=== PATIENT | female | born 1960 | race Caucasian/White ===

== ENCOUNTER 2016-11-25 19:44 | Emergency (ER) | payer SELFPAY ==
[2016-11-25] MEDS ORDERED: SODIUM CHLORIDE 0.9% 10 ML FLUSH FLUSH PRN (20:09)
--- NOTE | 2016-11-25 20:40 | EDPRACDOC ---
- General Information Stated Complaint: SHORTNESS OF BREATH Time Seen by Provider: 11/25/16 19:57 Home Medications: Home Medications Albuterol Sulfate [Proair Hfa] 2 puff INH Q2H PRN #1 inhaler 07/06/15 Aspirin 81 mg PO DAILY 07/06/15 Acetaminophen with Codeine [TYLENOL WITH CODEINE; [employer] with Codeine] 5 ml PO Q4-6H PRN #120 ml 11/25/16 Albuterol/Ipratropium Neb [Duoneb] 3 ml NEB Q6H PRN #1 box 11/25/16 Alprazolam [Xanax] 1 mg PO BID PRN 11/25/16 Ascorbate Calcium [Vitamin C] 500 mg PO DAILY 11/25/16 Cefdinir 300 mg PO BID #20 capsule 11/25/16 Cetirizine HCl [Zyrtec] 10 mg PO DAILY 11/25/16 Cyanocobalamin (Vitamin B-12) [Vitamin B-12 (cyanocobalamin)] 1,000 mcg SL DAILY 11/25/16 Stanton-3 Fatty Acids/Fish Oil [Fish Oil 1,000 mg Capsule] 1 cap PO DAILY Prednisone [Deltasone, Orasone] 2 tabs PO DAILY #20 tab 11/25/16 Allergies/Adverse Reactions: Allergies Allergy/AdvReac Type Severity Reaction Status Date / Time ibuprofen [From Advil] Allergy Severe Hives* Verified 11/25/16 19:51 levofloxacin [From Levaquin] Allergy See Verified 11/25/16 19:51 Comments - History of Present Illness Onset: 3 WEEKS HPI: PT PRESENTS TODAY WITH SHOB/COUGH X 3 WEEKS. PT STATES THAT TODAY SHE DEVELOPED WORSENING CID. DENIES FEVER, CP, ABD PAIN, N/V/D. HEAVY SMOKER. PMH OF ASTHMATIC BRONCHITIS FOR WHICH SHE USES AN INHALER AND HAS DONE SO W/OUT RELIEF AT HOME. Shortness of Breath: Moderate Relevant History: Reports: Asthma, COPD Cough: Reports: Non-productive Rhinorrhea: Reports: None Ear Symptoms: Reports: Earache SOB Worsens with: Reports: Exertion, Coughing, CID SOB Improves with: Reports: Rest Associated Signs and symptoms: Reports: Cough, Earache ED Past Medical History - History Reviewed Yes Nurses notes reviewed and agree except as marked - Patient Medical History Neurological History: Denies: Cerebrovascular Accident, Dementia Cardiac History: Reports: Syncope (? INNER EAR). Denies: Atrial Fibrillation, Hypertension, Congestive Heart Failure, Heart Attack, Hypercholesterolemia Respiratory History: Reports: Asthma, COPD, Chronic Bronchitis, Pneumonia. Denies: Emphysema GI/ History: Denies: Gastroesophageal Reflux Psychological History: Reports: Depression, Anxiety Systemic History: Denies: Cancer, Diabetes Surgical History: Denies: Tonsillectomy/Adnoidectomy - Family Medical History Reports: Hypertension (MOTHER), Cancer (SISTER) - Social Medical History Smoking Status: Light tobacco smoker (less than 5/day) EDM Review of Systems - Review of Systems ROS Negative Except as Marked: Yes All systems reviewed and were negative except as marked Constitutional: Fatigue Eyes: No Symptoms Reported Ears: Pain Throat: No Symptoms Reported Nose: Congestion Respiratory: Cough, Shortness of Breath, Wheezing, Asthma Cardiovascular: No Symptoms Reported Gastrointestinal: No Symptoms Reported Neurological: No Symptoms Reported Musculoskeletal: No Symptoms Reported Integumentary: No Symptoms Reported - Physical Exam Constitutional: Alert (Awake), No apparent distress Oriented to: Time, Person, Place Last recorded Vital Signs: Oxygen Pulse Oxygen Saturation O2 Device Oxygen Flow Rate Fraction of Inspired Oxygen ( FIO2) - HEENT Head: Normal Eye Exam: Normal Neck: Normal, Denies Pain, Midline - Respiratory/Cardiovascular Respiratory: Diminished, Rhonchi, Wheezes Cardiovascular: Tachycardia - GI Palpation: Normal Tenderness: Non tender - Musculoskeletal Back: Normal Extremities: Normal - Integumentary Skin: Normal Lymphatics: Normal - Neurologic Cerebellar: Normal Mood Description: Normal Thought: Coherent Perception: Normal ED SOB MDM - Re-evaluation Re-evaluation 1 Re-evaluation Time: 22:20 Re-evaluation: PT FEELING BETTER AFTER TREATMENT AND SLEEPING. PT HAS NOT TRIED OUTPATIENT TREATMENT, AND I DISCUSSED OUTPATIENT VS IN-HOSPITAL TREATMENT AND PT OPTED TO TRY OUTPATIENT FIRST. I BELIEVE THIS IS A REASONABLE PLAN AND HAD THOROUGH DISCUSSION REGARDING SMOKING CESSATION WITH PT. SHE UNDERSTANDS THAT IF SHE GOES HOME AND SMOKES, SHE WILL GET WORSE. - Results Result Diagrams: 11/25/16 20:40 11/25/16 20:40 - EKG EKG #1 EKG Time: 20:27 -: Yes EKG interpreted by me Rate: bpm: 101 [place]: Normal Rhythm: ST Block: None Hypertrophy: None ST: Normal Decision Time to Discharge: 22:22 - Departure Disposition: Home Condition: Stable Final Diagnosis: Pneumonia Qualifiers: Pneumonia type: due to unspecified organism Laterality: unspecified laterality Lung location: unspecified part of lung Qualified Code(s): J18.9 - Pneumonia, unspecified organism Instructions: Community Acquired Pneumonia (ED) Education/Counseling Given To: Patient Education/Counseling Given Regarding: Diagnosis, Treatment, Follow Up Referrals: Chay Louise MD [Primary Care Provider] - One Week Prescriptions: New Cefdinir 300 mg PO BID #20 capsule Prednisone [Deltasone, Orasone] 2 tabs PO DAILY #20 tab Acetaminophen with Codeine [TYLENOL WITH CODEINE; [employer] with Codeine] 5 ml PO Q4-6H PRN #120 ml PRN Reason: Pain Continue Albuterol/Ipratropium Neb [Duoneb] 3 ml NEB Q6H PRN #1 box PRN Reason: Shortness Of Breath No Action Aspirin 81 mg PO DAILY Albuterol Sulfate [Proair Hfa] 2 puff INH Q2H PRN #1 inhaler PRN Reason: Dyspnea Stanton-3 Fatty Acids/Fish Oil [Fish Oil 1,000 mg Capsule] 1 cap PO DAILY Cyanocobalamin (Vitamin B-12) [Vitamin B-12 (cyanocobalamin)] 1,000 mcg SL DAILY Ascorbate Calcium [Vitamin C] 500 mg PO DAILY Cetirizine HCl [Zyrtec] 10 mg PO DAILY Alprazolam [Xanax] 1 mg PO BID PRN PRN Reason: Anxiety Additional Instructions: YOU MUST NOT SMOKE!!! RETURN TO ED IF YOUR CONDITION WORSENS.
[2016-11-25 20:43] VITALS: PULSE 107; TEMP 98.6; BMI 21.8
[2016-11-25 20:45] LABS: ABG Draw Site Right Radial; ABG Draw Tech BKL; ALLEN'S TEST PASS; BEb 2.2 (+/- 2); TCO2 26.3 MMOL/L (23-27)
[2016-11-25 20:51] LABS: AUTOMATED BASOPHIL 0.7 % (0-2); AUTOMATED EOSINOPHIL 3.1 % (0-5); AUTOMATED LYMPH 4.5 % (17-44); AUTOMATED NEUTROPHIL 89.7 % (45-76); MPV 7.8 fL (7.4-10.4)
[2016-11-25] MEDS: ALBUTEROL 0.083% 3 ML NEB NEB SCH ×3 (20:54→20:56)
[2016-11-25 21:00] LABS: BLOOD UREA NITROGEN 6 MG/DL (7-17); CALCIUM 9.5 MG/DL (8.4-10.2); CALCULATED OSMOLALITY 271 MOs/Kg (270-290); CHLORIDE 105 mEq/L (98-107); GLUCOSE 107 MG/DL (70-99); SODIUM LEVEL 142 mEq/L (137-146)
[2016-11-25 21:02] LABS: PARTIAL THROMB. TIME 28.5 SEC (22-35); PT-INR 1.2
[2016-11-25 21:33] LABS: LEUKOCYTES/URINE NEG (NEGATIVE); NITRITE/URINE NEG (NEGATIVE); RBC/URINE 0-2 (0-5); URINE OCCULT BLOOD 1+ (NEG/TRACE)
--- NOTE | 2016-11-25 21:34 | DIRPT ---
CLINICAL DATA: Cough and shortness of breath for 3 weeks. Worsening dyspnea on exertion. EXAM: CHEST 2 VIEW COMPARISON: Radiographs and CT 07/06/2015 FINDINGS: The cardiomediastinal contours are normal. The lungs are clear. Pulmonary vasculature is normal. No consolidation, pleural effusion, or pneumothorax. No acute osseous abnormalities are seen. IMPRESSION: No acute pulmonary process. Electronically Signed By: Eleanor Catherine M.D. On: 11/25/2016 21:31
[2016-11-25 22:00] VITALS: BP 122/70
[2016-11-25] MEDS ORDERED: CEFDINIR 300 MG CAP PO ONE (22:04)
== END 2016-11-25 23:05 | disposition home or self-care (01) ==
LOC: ED 19:44
DX: J18.9 Pneumonia, unspecified organism (principal)
CPT/HCPCS: 36415; 36600; 71020; 80053; 81001; 82803; 83605; 84484; 85025; 85610; 85730; 87040; 87086; 93005; 94640; 99284; J3490